=== PATIENT | female | born 1960 | race Caucasian/White ===

== ENCOUNTER 2017-08-08 08:28 | Day surgery (SDC) | payer OTHER ==
[~2017-08-08] VITALS: Ht 175.3 cm; Wt 122.2 kg
[2017-08-08 09:15] VITALS: BP 140/83; PULSE 68; TEMP 97.8
[2017-08-08] MEDS ORDERED: ZANTAC 150MG T150 MG PO (09:26)
[2017-08-08] MEDS ORDERED: COZAAR 25MG25 MG/TAB PO (09:26)
[2017-08-08 10:05] VITALS: BP 120/77; PULSE 69; TEMP 97.4
[2017-08-08 10:15] VITALS: BP 109/64; PULSE 75
[2017-08-08 10:30] VITALS: BP 112/69; PULSE 64
== END 2017-08-08 11:03 | disposition home or self-care (01) ==
LOC: SDCO 08:28
DX: Z86.010 Personal history of colon polyps (principal); Z80.0 Family history of malignant neoplasm of digestive organs
CPT/HCPCS: J2250; J3010; J7030

== ENCOUNTER → 2024-08-02 | Outpatient (CLI) | payer BC, OTHER ==
[~2024-08-02] MED LIST: COZAAR 25MG25 MG/TAB PO; Iohexol 300 - 10 ML VIAL IV ONE; Triamcinolone 40 MG/ML 1 ML VIAL IJ ONE; ZANTAC 150MG T150 MG PO
== END ==
LOC: COL.RAD 07:29
DX: M25.552 Pain in left hip (principal)
CPT/HCPCS: J0665; J3301; Q9967